=== PATIENT | female | born 1970 | race Caucasian/White ===

== ENCOUNTER 2020-06-16 22:57 | Emergency (ER) | payer OTHER ==
[2020-06-16 23:14] VITALS: Wt 77.3 kg
[2020-06-16 23:38] LABS: HEMATOCRIT 31.2 % (36.0-48.0); HEMOGLOBIN 10.5 g/dL (12-16); LYMPHOCYTES 25.9 % (15-50); MCH 29.6 pg (26.0-34.0); MCHC 33.7 g/dL (31.0-37.0); MCV 87.9 fL (80.0-100.0); MEAN PLATELET VOLUME 9.1 fL (7.4-10.4); NEUTROPHILS 68.8 % (40-80); PLATELET COUNT 337 10x3/uL (130-400); RBC 3.55 10x6/uL (4.00-5.40); RDW 12.1 % (11.5-14.5); WBC 13.5 10x3/uL (4.8-10.8)
[2020-06-16 23:44] LABS: ANION GAP 9.3 mmol/L (8-16); CALCIUM 8.7 mg/dL (8.5-10.1); CARBON DIOXIDE 28.9 mmol/L (21.0-32.0); CREATININE - SERUM 0.9 mg/dL (0.6-1.3); POTASSIUM - SERUM 4.2 mmol/L (3.5-5.1)
[2020-06-16 23:50] LABS: ALBUMIN 3.4 g/dL (3.4-5.0); BILIRUBIN - TOTAL 0.19 mg/dL (0.2-1.3); PROTEIN - SERUM 7.4 g/dL (6.4-8.2)
[2020-06-17] VITALS: BP 153/66
[2020-06-17 00:12] LABS: APTT 29.5 SECONDS (22.8-39.4); INR 1.09 (0.85-1.17)
== END 2020-06-17 00:02 | disposition short-term general hospital (02) ==
LOC: D.ER 22:57
PROVIDERS: Family Medicine
DX: I63.9 Cerebral infarction, unspecified (principal); I67.1 Cerebral aneurysm, nonruptured; R29.810 Facial weakness

== ENCOUNTER → 2020-08-05 10:26 | Outpatient (CLI) | payer OTHER ==
[2020-08-05 10:47] LABS: CHOL - HDL RATIO 3.5 ratio (2.3-4.1); LDL-HDL RATIO 1.2 ratio (1.5-3.5)
== END | disposition home or self-care (01) ==
LOC: D.LABREF 10:26
PROVIDERS: ATTEND Internal Medicine
DX: I69.354 Hemiplegia and hemiparesis following cerebral infarction affecting left non-dominant side (principal)